=== PATIENT | male | born 1970 | race African-American/Black ===

== ENCOUNTER 2016-09-22 18:22 | Emergency (ER) | payer OTHER ==
[~2016-09-22] VITALS: Ht 182.9 cm; Wt 140.6 kg
[2016-09-22] MEDS ORDERED: Lidocaine 1% MPF 10mg/ml 5ml IM ONE (19:15)
[2016-09-22] MEDS ORDERED: Bacitracin Oint UD TOPIC ONE (19:15)
[2016-09-22] MEDS ORDERED: TdaP Vaccine 0.5ml Syr IM ONE (19:15)
[2016-09-22] MEDS ORDERED: IBUPROFEN600 MG ORAL (20:13)
[2016-09-22] MEDS ORDERED: BACITRACIN1 APPLIC TOPIC (20:13)
[2016-09-22 20:27] VITALS: BP 136/84
--- NOTE | 2016-09-22 22:38 | Emergency Room Report ---
History of Present Illness General Chief Complaint: Laceration Source: Patient Present Illness [facility] The patient is a 45-year-old male presenting with left hand laceration which occurred earlier today. The patient states that he was chopping wood with an axe when it slipped and cut his finger. The patient states the pain is a 5/10 dull ache it does not radiate from the laceration site. The patient denies any numbness or tingling of the extremity denies prior injury to the finger. Allergies: Coded Allergies: No Known Allergies (Unverified , 09/22/16) Patient History Past Medical History: see triage record Pertinent Family History: none Reviewed Nursing Documentation: PMH: Agreed, PSxH: Agreed Nursing Documentation-PMH Past Medical History: No Stated History Review of Systems All Other Systems: negative except mentioned in HPI Physical Exam Vital Signs Date Time Temp Pulse Resp B/P Pulse Ox O2 Delivery O2 Flow Rate FiO2 09/22/16 18:49 97.9 83 14 136/84 99 Room Air Sp02 EP Interpretation: reviewed, normal General Appearance: no apparent distress, alert, GCS 15, non-toxic Head: normocephalic, atraumatic Eyes: bilateral eye PERRL, bilateral eye normal inspection Musculoskeletal: back normal, digits/nails normal, gait/station normal, normal range of motion, tender - over laceration site Neurologic: alert, oriented x3, responsive, motor strength/tone normal, sensory intact, speech normal Psychiatric: judgement/insight normal, memory normal, mood/affect normal, no suicidal/homicidal ideation Skin: normal color, no rash, warm/dry, well hydrated, laceration - 2cm linear laceration distal to L 2nd digit DIPJ Procedures Laceration/Wound Repair Laceration/Wound Repair : Consent: Verbal Wound Location: upper extremity Wound's Depth, Shape: superficial Wound Length (cm): 2 Wound Explored: clean Irrigated w/ Saline (ccs): 200 Betadine Prep?: Yes Anesthesia: 1% Lidocaine - digital block Volume Anesthetic (ccs): 4 Wound Debrided: minimal Wound Repaired With: sutures Suture Size/Type: 5:0, nylon Number of Sutures: 5 Layer Closure?: No Sterile Dressing Applied?: Yes Splint Applied?: No Sling Applied?: No Patient Tolerated: Well Complications: None Medical Decision Making PA Attestation Dr. Knowles is my supervising physician. Patient management was discussed with my supervising physician Diagnostic Impression: Primary Impression: Laceration ER Course The patient is a 45-year-old male presenting with left hand laceration which occurred earlier today. Ddx considered include but not limited to fracture, tendon/ligament injury, avulsion, nerve damage PE: vitals WNL. NAD L hand: 2cm linear laceration distal to L 2nd digit DIPJ. No bleeding. Full AROM. No nail involvement. SILT TDAP given. L hand xray unremarkable. The wound was irrigated with normal saline and cleaned with Betadine. A 27g needle was used to administer 4mL of lidocaine w.o epi for digital block. 5 sutures were placed with 5-0 Nylon. The wound was well approximated and the patient tolerated the procedure well. The wound was then cleaned and bacitracin was applied. The patient is discharged home with a prescription for Motrin and bacitracin. The patient will follow up with primary care physician in 6-7 days for suture removal and wound check. ER precautions Other X-Ray Diagnostic Results Other X-Ray Diagnostic Results : X-Ray Ordered: L hand Date: Sep 22, 2016 EP Interpretation: Yes Findings: no fractures, no dislocation, no soft tissue swelling Number of Views: 3 PA Scribe Text I am acting as scribe for my supervising physician. My supervising physician's interpretation of the L hand xrays are there are no fractures, dislocations or soft tissue swelling. Last Vital Signs Date Time Temp Pulse Resp B/P Pulse Ox O2 Delivery O2 Flow Rate FiO2 09/22/16 20:27 97.8 83 14 136/84 99 Room Air Status: improved Disposition: HOME, SELF-CARE Condition: Improved Scripts Bacitracin (Bacitracin Zinc) 15 Gm Oint...g. 1 APPLIC TOPIC Q12HR, #15 GM Prov: TERZIANLUIS P.A. 09/22/16 Ibuprofen* (MOTRIN*) 600 Mg Tablet 600 MG ORAL Q8H Y for For Pain, #30 TAB 0 Refills Prov: TERZIAN,LUIS P.A. 09/22/16 Referrals: NOT CHOSEN IPA/MD,REFERRING (PCP) Patient Instructions: Laceration Care, Adult Additional Instructions: I discussed my findings with the patient. All questions and concerns have been answered. Treatment and medication compliance have been addressed. I advised the patient that they need to follow up with PMD in 6-7 days for wound check and suture removal. If you are unable to see PMD, return to the ED in 6-7 days. Return to ED if pain remains or worsens, you notice discharge from the wound, the wound continues to bleed, the suture/s fall out, you notice a fever or chills, or for any reason. Patient is advised to keep the wound clean and apply an antibacterial ointment. Patient verbalized understanding of discharge instructions. LUIS CAMPBELL Sep 22, 2016 22:38
--- NOTE | 2016-09-27 10:32 | Diagnostic Imaging Report ---
Indication: PAIN Technique: 3 views hand Comparison: none Findings: No acute fractures. No dislocations. Joint spaces are preserved. No radiopaque foreign body Impression: Negative
== END 2016-09-22 20:30 | disposition home or self-care (01) ==
LOC: EMR 19:30
DX: S61.412A Laceration without foreign body of left hand, initial encounter (principal); S61.211A Laceration without foreign body of left index finger without damage to nail, initial encounter; W27.0XXA Contact with workbench tool, initial encounter; Y92.89 Other specified places as the place of occurrence of the external cause; Z23 Encounter for immunization
CPT/HCPCS: 90471; 90715